=== PATIENT | female | born 1955 ===

== ENCOUNTER 2018-10-06 05:09 | Emergency (ER) | payer MEDICAID, OTHER ==
[2018-10-06] MEDS ORDERED: Sodium Chloride 0.9% 1,000 ML IV STA (06:19)
--- NOTE | 2018-10-06 06:57 | ED PDOC ---
HPI: Abdomen Time Seen by Provider: 10/06/18 05:20 Chief Complaint (Nursing): GI Problem Chief Complaint (Provider): GI Problem History Per: Family History/Exam Limitations: no limitations Onset/Duration Of Symptoms: Hrs Current Symptoms Are (Timing): Still Present Additional Complaint(s): Patient is a 63 y/o female with a PMHx of HTN and Hypercholesterolemia who was b rought into the ED asleep by her family for evaluation of several episodes of vomiting due to intoxication, onset earlier today. Patient's sister reports that the patient had 6 shots of tequila at 01:00 which induced the vomiting. History obtained through [employer] [facility] Follower, Amanuel #[id number] PCP: none provided Past Medical History Reviewed: Historical Data, Nursing Documentation, Vital Signs Vital Signs: Last Vital Signs Temp 98.6 F 10/06/18 05:16 Pulse 69 10/06/18 05:16 Resp 16 10/06/18 05:16 BP 140/77 10/06/18 05:16 Pulse Ox 99 10/06/18 05:16 - Medical History PMH: HTN, Hypercholesterolemia Denies: Chronic Kidney Disease - Surgical History Surgical History: No Surg Hx - Family History Family History: States: No Known Family Hx - Social History Current smoker - smoking cessation education provided: No Alcohol: Social - Immunization History Hx Tetanus Toxoid Vaccination: No Hx Influenza Vaccination: No Hx Pneumococcal Vaccination: No - Home Medications Home Medications: Ambulatory Orders Medication Instructions Recorded RX: Ibuprofen [Motrin Tab] 600 mg PO TID #21 tab 05/03/17 RX: Ondansetron ODT [Zofran ODT] 1 odt PO BID PRN #10 odt 05/03/17 Losartan [Cozaar] 50 mg PO DAILY #14 tab 10/08/17 Magnesium Oxide [Magox 400] 400 mg PO BID #28 tablet 10/08/17 RX: Acetaminophen [Tylenol 325mg 650 mg PO Q6 PRN tab 10/08/17 tab] RX: Aspirin [Aspirin Chewable] 81 mg PO DAILY chew 10/08/17 RX: Levothyroxine [Synthroid] 25 mcg PO DAILY #14 tab 10/08/17 - Allergies Allergies/Adverse Reactions: Allergies Allergy/AdvReac Type Severity Reaction Status Date / Time Penicillins Allergy RASH Verified 10/06/18 05:16 Review of Systems Review Of Systems: ROS cannot be obtained secondary to pt's inabilty to answer questions. Physical Exam - Reviewed Nursing Documentation Reviewed: Yes Vital Signs Reviewed: Yes - Physical Exam Appears: Positive for: No Acute Distress (but highly intoxicated) Head Exam: Positive for: ATRAUMATIC, NORMAL INSPECTION, NORMOCEPHALIC Skin: Positive for: Normal Color, Warm, Dry Eye Exam: Positive for: Normal appearance, EOMI, PERRL ENT: Positive for: Normal ENT Inspection Neck: Positive for: Normal, Painless ROM Cardiovascular/Chest: Positive for: Regular Rate, Rhythm. Negative for: Murmur Respiratory: Positive for: Normal Breath Sounds. Negative for: Respiratory Distress Gastrointestinal/Abdominal: Positive for: Normal Exam, Soft. Negative for: Tenderness Extremity: Positive for: Normal ROM (Upper/Lower). Negative for: Deformity Neurologic/Psych: Positive for: Other (Sleeping on Exam). Negative for: Alert (pt somnolent/asleep), Oriented - Laboratory Results Result Diagrams: 10/06/18 06:40 10/06/18 06:40 - ECG O2 Sat by Pulse Oximetry: 99 (RA) Pulse Ox Interpretation: Normal Medical Decision Making Medical Decision Making: Time: 618 Plan: intoxication Alcohol Serum CMP CBC IV Fluids Zofran Inj 4 mg IV Time: 644 Patient is more awake. Time: 0700 -- Patient endorsed to Dr. Hwang, pending labs and re-evaluation. Scribe Attestation: Documented by Crow Ocasio acting as a scribe for Karuna Vazquez MD. Provider Scribe Attestation: All medical record entries made by the Scribe were at my direction and personally dictated by me. I have reviewed the chart and agree that the record accurately reflects my personal performance of the history, physical exam, medical decision making, and the department course for this patient. I have also personally directed, reviewed, and agree with the discharge instructions and disposition. Disposition - Clinical Impression Clinical Impression: Alcoholic gastritis - Patient ED Disposition Is Patient to be Admitted: Transfer of Care - Disposition Referrals: Jennifer Lee [Family Provider] - Disposition: Transfer of Care Disposition Time: 07:00 Condition: FAIR Instructions: Gastritis, Alcohol Use - When Is Drinking a Problem? Forms: [employer] (Divehi) Print Language: MAORI Patient Signed Over To: Ivonne Hwang Handoff Comments: pending labs and re-evaluation.
[2018-10-06 07:22] LABS: BASO # 0.1 K/uL (0.0-0.2); BASO % 0.6 % (0.0-2.0); EOS # 0.2 K/uL (0.0-0.7); EOS % 2.7 % (0.0-4.0); HEMOGLOBIN 12.5 g/dL (12.0-16.0); LYMPH # 1.5 K/uL (1.0-4.3); LYMPH % 16.7 % (20.0-40.0); MEAN CORPUSCULAR HEMOGLOBIN 29.6 pg (27.0-31.0); MEAN CORPUSCULAR HGB CONC 32.9 g/dL (33.0-37.0); MEAN PLATELET VOLUME 8.9 fl (7.2-11.7); MONO # 0.5 K/uL (0.0-0.8); MONO % 6.1 % (0.0-10.0); NEUT # 6.5 K/uL (1.8-7.0); NEUT % 73.9 % (50.0-75.0); RBC 4.21 Mil/uL (3.80-5.20); RED CELL DISTRIBUTION WIDTH 14.4 % (11.5-14.5); WHITE BLOOD COUNT 8.8 K/uL (4.8-10.8)
[2018-10-06 07:33] LABS: ALB/GLOB RATIO 1.1 (1.0-2.1); ALT/SGPT 31 U/L (9-52); AST/SGOT 30 U/L (14-36); BLOOD UREA NITROGEN 15 mg/dl (7-17); CALCIUM 8.5 mg/dL (8.4-10.2); GFR NON-AFRICAN AMERICAN > 60
--- NOTE | 2018-10-06 07:43 | ED PDOC ---
- Laboratory Results Result Diagrams: 10/06/18 06:40 10/06/18 06:40 - ECG O2 Sat by Pulse Oximetry: 99 (RA) - Progress Re-evaluation Time: 08:15 Condition: Re-examined, Improved Medical Decision Making Medical Decision Making: Time: 0700 --Patient endorsed to provider by Dr. Vazquez, pending lab results, clinical sobriety, and re-eval. Scribe Attestation: Documented by Meka Snowden, acting as a scribe for Ivonne Hwang MD. Provider Scribe Attestation: All medical record entries made by the Scribe were at my direction and personally dictated by me. I have reviewed the chart and agree that the record accurately reflects my personal performance of the history, physical exam, medical decision making, and the department course for this patient. I have also personally directed, reviewed, and agree with the discharge instructions and disposition. Disposition Doctor Will See Patient In The: Office Counseled Patient/Family Regarding: Diagnosis, Need For Followup, Rx Given - Clinical Impression Clinical Impression: Alcoholic gastritis - POA Present On Arrival: None - Disposition Referrals: Jennifer Lee [Family Provider] - Disposition: Routine/Home Disposition Time: 08:15 Condition: FAIR Instructions: Gastritis, Alcohol Use - When Is Drinking a Problem? Forms: [employer] (Setswana) Print Language: MAURITIAN
[2018-10-06 08:36] VITALS: BP 123/76; PULSE 74; RESP 18; TEMP 98.3
[2018-10-07 00:01] VITALS: O2SAT 99
== END 2018-10-06 08:44 | disposition home or self-care (01) ==
LOC: H.ER 05:09
DX: F10.129 Alcohol abuse with intoxication, unspecified (principal); R11.10 Vomiting, unspecified; K29.20 Alcoholic gastritis without bleeding; E78.00 Pure hypercholesterolemia, unspecified; I10 Essential (primary) hypertension; Z88.0 Allergy status to penicillin
CPT/HCPCS: 80053; 80320; 85025; 96360; 99285; J2405; J7030